=== PATIENT | male | born 1995 | race Caucasian/White ===

== ENCOUNTER 2018-04-21 20:28 | Emergency (ER) | payer BC ==
[2018-04-21 21:04] VITALS: BP 137/67
--- NOTE | 2018-04-21 21:49 | UC ---
Skin Complaint HPI - HPI Summary HPI Summary: 22 y/o male presents to the urgent care c/o B/L leg red rash w/ blisters and and yellowish drainage since Friday04/17/2018. Pt reports he was Dx w/ Staph about 2 weeks ago in his LLL at the [facility] and Rx ABx . he can't recall name of ABx. 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 Pt states rash itches a lot. he has been scratching and he thinks is getting worse because redness is bigger and is warm to touch and slightly painful. Pain at touch is 2/10. Bister have a yellowish discharge. Pt denies fever, calf pain, SOB, chest pain, abdominal pain, N/V/D. - History of Current Complaint Chief Complaint: UCRash Time Seen by Provider: 04/21/18 21:13 Stated Complaint: RASHES ON LEGS Hx Obtained From: Patient Onset/Duration: Gradual Onset, Lasting Days - 5 days, Still Present, Worse Since - yesterday Skin Exposure Onset/Duration: Days Ago - 5 days Timing: Constant Onset Severity: Mild Current Severity: Moderate Pain Intensity: 2 - at touch Pain Scale Used: 0-10 Numeric Location: Diffuse - left lower leg and descrete in Rt lower leg Character: Swelling, Pruritus, Redness, Painful Aggravating Factor(s): Wet Conditions, Touch Alleviating Factor(s): Nothing Associated Signs & Symptoms: Positive: Rash, Drainage - yellowish blisters, Tenderness. Negative: Numbness, Fever, Chills Related History: Possible Reaction to: Environmental Exposure, Other: - Hx of Staph 2 weeks ago from a insect bite - Allergy/Home Medications Allergies/Adverse Reactions: Allergies Allergy/AdvReac Type Severity Reaction Status Date / Time No Known Allergies Allergy Verified 04/21/18 21:05 Review of Systems Constitutional: Negative Skin: Rash - B/l lower leg rash, red, blisters and crusting, Other - itchiness Eyes: Negative ENT: Negative Respiratory: Negative Cardiovascular: Negative Gastrointestinal: Negative Genitourinary: Negative Motor: Negative Neurovascular: Negative Musculoskeletal: Other: - mild left lower leg pain at touch Neurological: Negative Psychological: Negative Is Patient Immunocompromised?: No All Other Systems Reviewed And Are Negative: Yes PMH/Surg Hx/FS Hx/Imm Hx Previously Healthy: Yes - Pt denies PMHX - Surgical History Surgical History: None Surgery Procedure, Year, and Place: denies - Family History Known Family History: Positive: None - Pt denies Fmhx - Social History Alcohol Use: Weekly Substance Use Type: None Smoking Status (MU): Never Smoked Tobacco - Immunization History Vaccination Up to Date: Yes Physical Exam - Summary Physical Exam Summary: Vital Signs Reviewed: Yes General: well developed, well nourished male sitting in the examining table w/o any apparent distress. Eyes: Positive: Conjunctiva Clear - PERRLA, EOMI ENT: Positive: Normal ENT inspection, Hearing grossly normal, Pharynx normal, TMs normal Neck: Positive: Supple, Nontender, No Lymphadenopathy Respiratory: Positive: Chest nontender, Lungs clear, Normal breath sounds Cardiovascular: Positive: RRR, No Murmur, Pulses Normal Abdomen Description: Positive: Nontender, No Organomegaly, Soft. Negative: CVA Tenderness (R), CVA Tenderness (L) Bowel Sounds: Positive: Present Musculoskeletal: Positive: Strength Intact, ROM Intact, No Edema Neurological Exam: Normal Psychological Exam: Normal Skin: Positive: rashes -LF dorsal side of left lower leg w/ erythemaous patch w / some scattered linear streaks and scattered blisters w/ yellowish drainage about 14 cm x 4cm in size w/ surrounding erythema w/ indistinct borders, warm to touch, swelling and tender to palpation. RT lower leg w/ similar rash, but smaller about 2.0cm in size. Triage Information Reviewed: Yes Vital Signs: Initial Vital Signs Temp 100 F 04/21/18 20:58 Pulse 92 04/21/18 20:58 Resp 18 04/21/18 20:58 BP 137/67 04/21/18 20:58 Pulse Ox 98 04/21/18 20:58 Course/Dx - Course Course Of Treatment: 22 y/o male presents to the urgent care c/o B/L leg red rash w/ blisters and and yellowish drainage since Friday04/17/2018. Pt reports he was Dx w/ Staph about 2 weeks ago in his LLL at the [facility] and Rx ABx . he can't recall name of ABx. 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 Pt states rash itches a lot. He has been scratching and he thinks is getting worse because redness is bigger and is warm to touch and slightly painful. Pain at touch is 2/10. Blisters have a yellowish discharge. Pt denies fever,Hx of MRSA, calf pain, SOB, chest pain, abdominal pain, N/V/D. Hx obtained. Pt w/ probably poison татьяна rash that is now co-infected and cellulitis developed. Pt given Rocephin IM inj and Prednisone taper dose by Nurse. Pt tolerated well IM inj and oral medication. Wound culture taken from one of the blisters and sent to lab to r/o MRSA. Bactroban topical cream applied over the rash and the rest dispense home. PT Rx Bactrim PO , and Prednisone and more Bactroban topical cream. Rash demarcated with a skin marker and advised If redness and swelling doubles in size beyond what was demarcated after 48 hrs of taking antibiotic and fever develops to immediately go to the ER immediately. D/c instructions explained. Pt understood and agreed with D/C instructions. Left clinic hemodynamically stable, A&OX3 - Differential Diagnoses - Skin Complaint Differential Diagnoses: Abscess, Cellulitis, Contact Dermatitis, Impetigo, Local Allergic Reaction, Lymphadenitis, MRSA, Poison Татьяна, Poison [place] - Diagnoses Provider Diagnoses: 1- Poison Татьяна rash w/ co-infection in B/L lower legs. 2- Left lower leg cellulitis Discharge - Sign-Out/Discharge Documenting (check all that apply): Patient Departure - D/C home - Discharge Plan Condition: Stable Disposition: HOME Prescriptions: Mupirocin 2% OINT* [Bactroban 2 % Oint*] 1 applic TOPICAL BID #1 tube predniSONE TAB* [Deltasone 20 MG TAB*] 20 mg PO DAILY #8 tab Sulfamethox/Trimethoprim DS* [Bactrim DS 800/160 TAB*] 1 tab PO BID #20 tab Patient Education Materials: Cellulitis (ED), Poison Татьяна (ED) Referrals: Jenna Yang, LITHOGRAPHIC PHOTOGRAPHER [Primary Care Provider] - 1 Day Additional Instructions: 1-Please take full course of Antibiotic. Starting tomorrow night . You were given first dose tonight 2- If redness and swelling doubles in size beyond what was demarcated and goes around leg after 48 hrs of taking antibiotic and fever develops please go to the ER immediately. 3- Take Prednisone PO as directed . First dose given tonight. Apply topical cream in all affected areas 4-Avoid standing for long periods of time or flexing your foot, keep it elevated and keep wound clean and dry. 5-Please F/u with your PCP in 1-2 days for f/u it symptoms are improving for further treatment. 6- Wound culture was taken form left lower leg and sent to lab to r/o any abnormality. You will be notified of the results. - Billing Disposition and Condition Condition: STABLE Disposition: Home Attestation Statement User Type: Provider - I was available for consult. This patient was seen by the [facility]. The patient was not presented to, seen by, or examined by me. -Pasha
[2018-04-21] MEDS ORDERED: cefTRIAXone VIAL(*) 1,000 MG VIAL IM ONE (22:09)
[2018-04-21] MEDS ORDERED: Mupirocin 2% OINT* TUBE TOPICAL ONE (22:10)
[2018-04-21] MEDS ORDERED: predniSONE TAB* 20 MG PO ONE (22:13)
[2018-04-21] MEDS ORDERED: Lidocaine 1% MPF* 2 ML VIAL INJ ONE (22:21)
[2018-04-21] MEDS ORDERED: Lidocaine 1%* 5 ML VIAL ONE (22:24)
== END 2018-04-21 22:49 | disposition home or self-care (01) ==
LOC: UCEAST 20:28
DX: L23.7 Allergic contact dermatitis due to plants, except food (principal); L03.116 Cellulitis of left lower limb
CPT/HCPCS: 87070; 87205; 96372; 99202; G0463; J0696; J7512

== ENCOUNTER 2018-04-26 20:10 | Emergency (ER) | payer BC ==
[2018-04-26 20:21] VITALS: BP 125/83
[2018-04-26] MEDS ORDERED: methylPREDNISolone 125 MG* 2 ML VIAL IM ONE (21:21)
--- NOTE | 2018-04-26 21:24 | UC ---
Lower Extremity/Ankle HPI - HPI Summary HPI Summary: This is ayanna Worthington documenting for attending Magdiel Lawrence MD. This patient is a 22 year old M presenting to [facility] with a chief complaint of edema in his left foot since 1 day ago. The patient rates the pain 3/10 in severity. Symptoms aggravated by nothing. Symptoms alleviated by nothing. Patient reports feeling of pins and needles in his left leg and both hands and redness on his chest. Patient denies fevers or chills. The patient notes that he was seen here last week for a rash on both legs and was given prescriptions for prednisone, Bactrim, and bactroban. The patient reports that he rash has improved since starting the medications. The patient reports he finished the course for prednisone and bactroban. He reports that he last took a dose of Bactrim earlier today. - History of Current Complaint Chief Complaint: UCRash Stated Complaint: POSS REACTION TO MEDS Time Seen by Provider: 04/26/18 20:28 Hx Obtained From: Patient Onset/Duration: Gradual Onset, Lasting Days - 1 day, Still Present Severity Initially: Mild Severity Currently: Mild Pain Intensity: 3 Pain Scale Used: 0-10 Numeric Aggravating Factor(s): Nothing Alleviating Factor(s): Nothing Able to Bear Weight: Yes - Allergies/Home Medications Allergies/Adverse Reactions: Allergies Allergy/AdvReac Type Severity Reaction Status Date / Time Sulfa (Sulfonamide Allergy Rash And Verified 04/26/18 21:30 Antibiotics) Itching PMH/Surg Hx/FS Hx/Imm Hx Previously Healthy: Yes - Surgical History Surgical History: None Surgery Procedure, Year, and Place: denies - Family History Known Family History: Positive: None - Pt denies Fmhx - Social History 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 Alcohol Use: Weekly Substance Use Type: None Smoking Status (MU): Never Smoked Tobacco - Immunization History Vaccination Up to Date: Yes Review of Systems Constitutional: Negative - negative fever, negative chills Skin: Rash - bilateral legs ENT: Negative - negative epistaxis Musculoskeletal: Edema - in left foot All Other Systems Reviewed And Are Negative: Yes Physical Exam - Summary Physical Exam Summary: Appearance: Well-appearing, Well-nourished Skin: Warm, scabbed-over vesicular lesions on bilateral lower extremities, mild to moderate erythema and swelling in B/L lower extremities R>L, mild macular rash on neck and upper chest c/w drug rash Eyes: Normal ENT: mild swelling over the dry border of the left upper lip Neck: Supple, nontender Respiratory: Clear to auscultation Cardiovascular: Regular rate, regular rhythm. Normal S1, S2. Dorsalis pedis pulses 2+ bilaterally Abdomen: Soft, nontender Musculoskeletal: Strength/ROM Intact, mild to moderate swelling in bilateral lower extremities with swelling worse in the left than in the right Neurological: Normal, A&Ox3 Psychiatric: Normal General: No acute distress Triage Information Reviewed: Yes Vital Signs: Initial Vital Signs Temp 97.5 F 04/26/18 20:16 Pulse 61 04/26/18 20:16 Resp 20 04/26/18 20:16 BP 125/83 04/26/18 20:16 Pulse Ox 99 04/26/18 20:16 Vital Signs Reviewed: Yes Lower Extremity Course/Dx - Course Course Of Treatment: Erythematous macular rash, diffuse, after starting Bactrim DS 5 days ago, and worsening. Discontinue Bactrim MARICHUY, Solumedrol 125mg IV administered IM x1, Ceftin 500 BID x7 more days and Medrol dose thalia to be picked up tomorrow - Differential Dx/Diagnosis Provider Diagnoses: Allergic reaction. Drug allergy. Sulfa allergy Discharge - Sign-Out/Discharge Documenting (check all that apply): Patient Departure - Discharge Plan Condition: Stable Disposition: HOME Prescriptions: Cefuroxime 500 MG(NF) 500 mg PO BID 7 Days #14 tab methylPREDNISolone [Medrol Dosepak 4 MG*] 0 mg PO .SEE THALIA INSTRUCTION 6 Days # 21 tab Patient Education Materials: Antibiotic Medication Allergy (ED) Referrals: Jenna Yang NP [Primary Care Provider] - Additional Instructions: follow up with PCP in 2 days - Billing Disposition and Condition Condition: STABLE Disposition: Home
== END 2018-04-26 21:57 | disposition home or self-care (01) ==
LOC: UCEAST 20:10
DX: T37.0X5A Adverse effect of sulfonamides, initial encounter (principal); R60.0 Localized edema; R21 Rash and other nonspecific skin eruption; M79.89 Other specified soft tissue disorders; Z88.2 Allergy status to sulfonamides; Y92.9 Unspecified place or not applicable
CPT/HCPCS: 96372; 99201; G0463; J2930